=== PATIENT | female | born 1985 | race Native Hawaiian/Other Pacific Islander ===

== ENCOUNTER 2017-07-28 17:39 | Outpatient (CLI) | payer OTHER | END 2017-07-28 22:23 | disposition home or self-care (01) | LOC: LAB 17:39 | DX: R07.89 Other chest pain (principal) | CPT/HCPCS: 84484; 85379 ==

== ENCOUNTER 2017-09-14 11:29 | Outpatient (CLI) | payer OTHER | END 2017-09-14 19:40 | disposition home or self-care (01) | LOC: RAD 11:29 | DX: M25.561 Pain in right knee (principal) ==

== ENCOUNTER 2018-05-28 14:42 | Outpatient (CLI) | payer OTHER | END 2018-05-28 19:36 | disposition home or self-care (01) | LOC: MRI 14:42 | DX: M25.561 Pain in right knee (principal) ==

== ENCOUNTER 2018-08-09 08:44 | Outpatient (CLI) | payer OTHER | END 2018-08-09 23:34 | disposition home or self-care (01) | LOC: RAD 08:44 | DX: Z13.820 Encounter for screening for osteoporosis (principal) ==

== ENCOUNTER 2018-11-22 13:53 | Outpatient (CLI) | payer OTHER ==
[2018-11-22 14:31] LABS: PLATELET COUNT 294 K/uL (152-353)
[2018-11-22 14:34] LABS: POTASSIUM 4.8 mmol/L (3.6-5.2)
[2018-11-22 14:40] LABS: PARTIAL THROMBOPLASTIN TIME 26.3 SECONDS (24.5-33.6)
== END 2018-11-22 19:18 | disposition home or self-care (01) ==
LOC: LABW 13:53
PROVIDERS: Orthopaedic Surgery
DX: G56.01 Carpal tunnel syndrome, right upper limb (principal)
CPT/HCPCS: 36415; 80048; 81025; 85027; 85610; 85730

== ENCOUNTER 2018-11-23 11:30 | Day surgery (SDC) | payer OTHER ==
[~2018-11-23] VITALS: Ht 30.5 cm; Wt 0.5 kg
== END 2018-11-23 14:38 | disposition home or self-care (01) ==
LOC: OR 11:30
PROC: 01N50ZZ Release Median Nerve, Open Approach (ICD-10-PCS; principal; 2018-11-23)
DX: G56.01 Carpal tunnel syndrome, right upper limb (principal)
CPT/HCPCS: J0132; J0461; J0690; J1100; J2001; J2250; J2405; J2704; J2765; J3010; J3490

== ENCOUNTER 2021-04-08 10:35 | Outpatient (CLI) | payer OTHER | END 2021-04-08 18:51 | disposition home or self-care (01) | LOC: MRI 10:35 | PROVIDERS: ATTEND Nurse Practitioner Family | DX: M54.17 Radiculopathy, lumbosacral region (principal) ==

== ENCOUNTER 2022-06-02 08:13 | Outpatient (CLI) | payer OTHER | END 2022-06-02 18:56 | disposition home or self-care (01) | LOC: US 08:13 | PROVIDERS: ATTEND Nurse Practitioner Family | DX: R74.01 Elevation of levels of liver transaminase levels (principal) ==